=== PATIENT | male | born 1990 | race Caucasian/White ===

== ENCOUNTER 2016-12-09 17:41 | Emergency (ER) | payer SELFPAY ==
[~2016-12-09] VITALS: Ht 188 cm; Wt 70.0 kg
[2016-12-09 17:42] VITALS: BP 133/89; PULSE 116; RESP 24; TEMP 97.8; O2SAT 99
[2016-12-09 17:53] VITALS: BP 113/71; PULSE 96; RESP 16; O2SAT 97
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
[2016-12-09 18:21] LABS: AUTOMATED NEUTROPHIL # 7.9 TH/MM3 (1.8-7.7); BASOPHIL % 0.4 % (0.0-2.0); EOSINOPHIL % 0.3 % (0.0-4.0); HEMATOCRIT 44.7 % (39.0-51.0); HEMO FLAGS DIFF FINAL; LYMPH % 15.5 % (9.0-44.0); LYMPHOCYTE # 1.6 TH/MM3 (1.0-4.8); MEAN CELL VOLUME 87.6 FL (80.0-100.0); MEAN CORPUSCULAR HEMOGLOBIN 29.1 PG (27.0-34.0); MEAN CORPUSCULAR HGB CONC 33.3 % (32.0-36.0); MONO % 9.2 % (0.0-8.0); NEUT % 74.6 % (16.0-70.0); PLATELET COUNT 184 TH/MM3 (150-450); RED BLOOD COUNT 5.11 MIL/MM3 (4.50-5.90); RED CELL DISTRIBUTION WIDTH 13.1 % (11.6-17.2); WHITE BLOOD COUNT 10.6 TH/MM3 (4.0-11.0)
[2016-12-09 18:49] LABS: ANION GAP 8 MEQ/L (5-15)
[2016-12-09 18:53] LABS: ALKALINE PHOSPHATASE 60 U/L (45-117); ALT (GPT) 47 U/L (12-78); AST (GOT) 78 U/L (15-37); BICARBONATE 25.1 MEQ/L (21.0-32.0); BLOOD UREA NITROGEN 20 MG/DL (7-18); CHLORIDE 104 MEQ/L (98-107); GLOMERULAR FILTRATION RATE 81 ML/MIN (>89); POTASSIUM 3.6 MEQ/L (3.5-5.1); SODIUM (NA) 137 MEQ/L (136-145); TOTAL BILIRUBIN ADULT 0.8 MG/DL (0.2-1.0)
[2016-12-09 19:03] LABS: AMPHETAMINE, URINE NEG (NEG); BARBITURATES, URINE NEG (NEG); COCAINE, URINE NEG (NEG)
[2016-12-09 20:46] VITALS: BP_SYST 113; BP_SYST 119; BP_DIAS 71; BP_DIAS 75; PULSE 91; PULSE 96; RESP 16; O2SAT 97
[2016-12-09 21:16] VITALS: BP 131/78; PULSE 102; RESP 18; TEMP 97.6; O2SAT 96
[2016-12-09] MEDS ORDERED: diphenhydrAMINE HCL 50 MG/ML VIAL IM PRN (21:36)
[2016-12-09] MEDS ORDERED: HALOPERIDOL LACTATE 5 MG/ML AMP IM ONE ×2 (21:45)
[2016-12-09] MEDS ORDERED: LORazepam 2 MG/ML VIAL IV PUSH ONE (21:45)
[2016-12-09] MEDS ORDERED: LORazepam 2 MG/ML VIAL IM ONE (21:45)
[2016-12-09 22:43] VITALS: BP 109/56; PULSE 78; RESP 18; TEMP 97.4; O2SAT 99
[2016-12-10 06:35] VITALS: BP 119/72; PULSE 124; RESP 18; O2SAT 98
[2016-12-10 10:50] VITALS: BP 114/62; PULSE 73; RESP 18; O2SAT 98
[2016-12-10 14:25] VITALS: BP 114/62; PULSE 73; RESP 18; O2SAT 98
== END 2016-12-10 15:41 | disposition home or self-care (01) ==
LOC: NEPC 17:41 → NEPJ 12-10 15:41
DX: Z04.6 Encounter for general psychiatric examination, requested by authority (principal); F17.210 Nicotine dependence, cigarettes, uncomplicated
CPT/HCPCS: 80053; 80307; 85025; 96372; 96374; 99284; J1200; J1630; J2060

== ENCOUNTER 2017-01-06 19:06 | Emergency (ER) | payer SELFPAY ==
[~2017-01-06] VITALS: Ht 185.4 cm; Wt 65.0 kg
[2017-01-06 19:08] VITALS: BP 126/74; PULSE 71; RESP 14; TEMP 97.8; O2SAT 99
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
== END 2017-01-06 21:03 | disposition home or self-care (01) ==
LOC: NEPK 19:06
DX: F19.10 Other psychoactive substance abuse, uncomplicated (principal)
CPT/HCPCS: 99283